=== PATIENT | male | born 1945 | race Two or more races ===

== ENCOUNTER 2021-04-06 05:40 | Day surgery (SDC) | payer OTHER ==
[~2021-04-06 05:40] MED LIST: PREVISION PO; [UNRECOGNIZED DRUG - OTHER]
[2021-04-06] MEDS ORDERED: PERCOCET 5-3251 EACH PO (08:58)
== END 2021-04-06 16:30 | disposition home or self-care (01) ==
LOC: CIR.AMB 05:40
PROVIDERS: ATTEND Surgery
DX: K62.0 Anal polyp (principal); Z20.822 Contact with and (suspected) exposure to COVID-19